=== PATIENT | male | born 1940 | race Hispanic/Latino ===

== ENCOUNTER 2017-07-18 09:50 | Outpatient (CLI) | payer MEDICARE ==
[2017-07-18] MEDS ORDERED: ISOVUE-370 76%-LOCM 1 ML ONE (11:41)
== END 2017-07-18 09:51 | disposition home or self-care (01) ==
LOC: BICCT 09:50
PROVIDERS: ATTEND Family Medicine
DX: F17.200 Nicotine dependence, unspecified, uncomplicated (principal); R07.9 Chest pain, unspecified; J98.4 Other disorders of lung; M47.896 Other spondylosis, lumbar region; M51.36 Other intervertebral disc degeneration, lumbar region; M43.16 Spondylolisthesis, lumbar region; Z98.1 Arthrodesis status
CPT/HCPCS: 71260; 72100; 82565

== ENCOUNTER 2018-03-07 11:44 | Outpatient (CLI) | payer MEDICARE ==
--- NOTE | 2018-03-07 13:27 | RAD ---
TWO VIEWS CHEST: HISTORY: Solitary pulmonary nodule. COMPARISON: 09/12/2017. FINDINGS: There are sternotomy wires. There is elongation of the aorta. Normal cardiac silhouette. Pulmonary vessels and hilum are normal. Costophrenic angles are clear. No masses or consolidation. No pneum othorax or osseous abnormalities. No acute cardiopulmonary process. Cavitary nodule noted on the chest CT from 07/18/2017 is not apprec iated radiographically and would be difficult to assess by radiograph. If there is concern, consider further evaluation with CT. 2. Limited radiographic visualization of a previously identified cavitary nodule in the medial right lower lobe. CT is recommended. CODE T POS: BOBBI
== END 2018-03-07 11:45 | disposition home or self-care (01) ==
LOC: BICRAD 11:44
PROVIDERS: ATTEND Family Medicine
DX: R91.1 Solitary pulmonary nodule (principal)
CPT/HCPCS: 71046

== ENCOUNTER 2018-08-25 09:45 | Outpatient (CLI) | payer MEDICARE ==
--- NOTE | 2018-08-25 12:28 | RAD ---
2 VIEWS LUMBAR SPINE: Date: 08/25/18 HISTORY: Intervertebral disc displacement. FINDINGS: Five lumbar-type vertebral bodies. Laminectomy defect at L3, L4, and L5. Severe loss of disc space he ight and osteophyte formation at L2-L3. There is vacuum disc phenomenon. 6.6 mm of retrolisthesis of L2 upon L3. There appears to be fusion of the L3-L4, L4-L5, and L5-S1 disc space. Posterior bone graft material i s noted. IMPRESSION: Extensive chronic changes of the lumbar spine. POS: KATI
--- NOTE | 2018-08-25 12:52 | RAD ---
CERVICAL SPINE SERIES 2 VIEWS: HISTORY: Neck pain. FINDINGS: Vertebral bodies are normal in height. There are degenerative osteophytes along the course of the sp ine. I do not appreciate a significant degree of disk narrowing. There are degenerative facet rodriguez es present. Minimal disk narrowing is seen at the C5-6 and C6-7 levels. 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 POS: C
== END 2018-08-25 09:46 | disposition home or self-care (01) ==
LOC: BICRAD 09:45
PROVIDERS: ATTEND Family Medicine
DX: M51.26 Other intervertebral disc displacement, lumbar region (principal); M54.2 Cervicalgia; M46.92 Unspecified inflammatory spondylopathy, cervical region
CPT/HCPCS: 72040; 72100

== ENCOUNTER 2019-03-25 12:54 | Outpatient (CLI) | payer MEDICARE ==
--- NOTE | 2019-03-31 15:39 | ULT ---
LOWER EXTREMITY ARTERIAL EVALUATION USING DOPPLER WAVEFORM ANALYSIS AND SEGMENTAL LIMB PRESSURES FOR EVALUATION OF PAIN IN HIS LOWER EXTREMITIES EAT REST 03/26/19 He has a history of peripheral vascular disease with known absent pedal pulses. Examination of the Doppler waveforms in the right leg reveals satisfactory femoral waveform with slig htly diminished waveform in the right popliteal and posterior tibial and more severely involved wavef orms in the dorsalis pedis distribution. No ankle-arm index could be calculated due to noncompressibl e vessels at the ankle level. Toe-brachial index is slightly diminished at 0.56. Left lower extremity reveals slightly abnormal waveform at the femoral level with more preserved but abnormal waveform at the popliteal, posterior tibial, dorsalis pedis level. Ankle arm index calculate s to 1.04; however, this may be falsely elevated due to his known noncompressible vessels. His toe-br achial index however, is normal at 0.78. 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 Waveforms are clearly abnormal in the right foot but it is difficult to say whet her they are abnormal enough to cause ischemic rest pain and further evaluation may be needed to asse ss this.
== END 2019-03-25 12:55 | disposition home or self-care (01) ==
LOC: ULT 12:54
PROVIDERS: ATTEND Family Medicine
DX: I73.9 Peripheral vascular disease, unspecified (principal); R93.6 Abnormal findings on diagnostic imaging of limbs
CPT/HCPCS: 93922

== ENCOUNTER 2019-08-10 08:55 | Outpatient (CLI) | payer MEDICARE ==
--- NOTE | 2019-08-10 12:22 | CT ---
CTA ABDOMEN AND PELVIS WITH BILATERAL LOWER EXTREMITY RUNOFF: INDICATIONS: Bilateral leg pain with numbness and swelling TECHNIQUE: Multiple CTA images were obtained of the abdomen and pelvis with bilateral lower extremity runoff uti lizing IV contrast and 3D reformatted imaging. Axial, coronal and sagittal reformatted images were constructed from the raw data. COMPARISON: None. FINDINGS: ABDOMEN: Lung bases: Clear Liver: There is a 6 mm flash filling lesion within segment 6 of the right hepatic lobe which in retro spect was likely present on a CT the thorax dated 07/18/2017. Similar-appearing focal flash filling lesion is seen within segment 5 of the right hepatic lobe on image 18 series. Smaller lesion is also present likely on image 23 of series 2. This was not definitely seen on the comparison exam. Tiny flash filling lesion seen on image 11 of series 2, not definitely seen on the prior exam. Gallbladder: Normal appearing. Pancreas: Normal. Adrenal glands: Normal. Spleen: Normal. Kidneys and ureters: Normal. No hydronephrosis. Lymph nodes:No lymphadenopathy. Free fluid in abdomen:No free fluid is evident. PELVIS: Small and large bowel: There is scattered colonic diverticulosis. Small bowel is of normal caliber. T here is mild is seen mesentery seen within the central abdomen. Appendix:Normal Bladder: Small loculated gas is seen within the bladder. Rectal and perirectal soft tissues:Normal. Reproductive structures: Prostate is enlarged measuring 5.2 cm. There are bilateral hydroceles within the scrotum. Free fluid in pelvis: No free fluid is evident. Lymphadenopathy pelvis: No lymphadenopathy is evident. Osseous structures: There is postprocedural change consistent with the interbody fusion of L3-S1. The re are laminectomy changes at L3-S1. There is diffuse osteopenia. There is scattered degenerative and osteoarthritic changes. Soft tissues:Normal. VASCULATURE: Aorta: Normal in caliber without evidence of stenosis or occlusion. Celiac:There is severe narrowing involving the origin and proximal segment of the celiac artery. SMA:There is mild narrowing involving the origin of the SMA. Renal arteries:The left renal artery is duplicated. No hemodynamically significant stenosis is seen i nvolving the renal arteries. JALYN:Normal in caliber without evidence of stenosis or occlusion. Right common iliac artery: Normal in caliber without evidence of stenosis or occlusion. Right external iliac artery: Normal in caliber without evidence of stenosis or occlusion. Right internal iliac artery: There is moderate to severe stenosis involving the proximal mid segment of the right internal iliac artery. Left common iliac artery: Mild narrowing involving the proximal left common iliac artery. Left external iliac artery: Normal in caliber without evidence of stenosis or occlusion.. Left internal iliac artery: Normal in caliber without evidence of stenosis or occlusion. Right common femoral artery: Normal in caliber without evidence of stenosis or occlusion. Right deep femoral artery: Normal in caliber without evidence of stenosis or occlusion. Right superficial femoral artery: There is mild atherosclerotic irregularity involving the distal ri ght SFA. Right popliteal artery: There is some mild luminal irregularity involving the proximal right poplite al artery. Right posterior tibial artery: There is multifocal moderate to high-grade stenosis involving the mid to distal right posterior tibial artery. There is single vessel runoff to the right ankle through the right posterior tibial artery. Right anterior tibial artery: Completely occluded from its origin through proximal segment. There is some reconstitution of flow within the anterior tibial artery within the proximal right foreleg with multifocal stenoses. There is a complete occlusion at the level of mid right foreleg. Right peroneal artery: There is multifocal stenoses involving the proximal right peroneal artery wit h complete occlusion in the proximal to mid right foreleg. Left common femoral artery: Normal in caliber without evidence of stenosis or occlusion. Left deep femoral artery: Normal in caliber without evidence of stenosis or occlusion. Left superficial femoral artery: There is mild narrowing involving the proximal aspect the left SFA with moderate narrowing involving the distal left SFA just prior to the adductor hiatus. Left popliteal artery: There is moderate atherosclerotic irregularity involving the proximal left po pliteal artery. Left posterior tibial artery: There is mild multifocal narrowing involving the proximal left posteri or tibial artery. There is single vessel runoff of the left ankle through the left posterior tibial artery. Left anterior tibial artery: Completely occluded within the proximal left foreleg. Left peroneal artery: Multifocal high-grade stenosis involving the left peroneal artery and is compl etely occluded by the level of the mid left foreleg. Additional findings: None. IMPRESSION: 1. Severe bilateral foreleg atherosclerotic disease with single-vessel runoff through the posterior t ibial arteries bilaterally. 2. Moderate grade stenosis involving the distal left SFA at the level left adductor hiatus. 3. Severe narrowing involving the origin and proximal aspects celiac artery. 4. Moderate to severe stenosis involving the proximal mid right internal iliac artery. 5. Small flash filling lesions involving the liver, some of which may have been present on the compar amisha CT examination of the thorax dated 07/18/2017, may reflect tiny flash filling hemangiomas. As a conservative measure, a follow-up CT the abdomen utilizing liver mass protocol would be recommended f or further characterization. This could be done in 6-8 weeks. 6. Small locule of gas, nondependent in the anterior bladder, may reflect recent instrumentation. Rec ommend correlation. 7. Prostate enlargement and bilateral scrotal hydroceles.
[2019-08-10] MEDS ORDERED: Iopamidol 370 76% 100 ML VIAL ONE (13:43)
== END 2019-08-10 08:56 | disposition home or self-care (01) ==
LOC: CT 08:55
PROVIDERS: ATTEND Thoracic Surgery (Cardiothoracic Vascular Surgery)
DX: I70.203 Unspecified atherosclerosis of native arteries of extremities, bilateral legs (principal); I77.4 Celiac artery compression syndrome; K76.9 Liver disease, unspecified; N40.0 Benign prostatic hyperplasia without lower urinary tract symptoms; N43.3 Hydrocele, unspecified
CPT/HCPCS: 75635; 82565; Q9967

== ENCOUNTER 2020-07-27 09:32 | Outpatient (CLI) | payer MEDICARE | END 2020-07-27 09:33 | disposition home or self-care (01) | LOC: BICRAD 09:32 | PROVIDERS: ATTEND Family Medicine | DX: M89.8X9 Other specified disorders of bone, unspecified site (principal) ==